=== PATIENT | male | born 1965 | race Caucasian/White ===

== ENCOUNTER 2021-09-21 10:33 | Inpatient (IN) | payer MEDICAID ==
[2021-09-21 15:00] VITALS: BP 144/88
[2021-09-21] MEDS ORDERED: HEPARIN SOD (PORCINE) 5000UNITS/ML 1ML VIAL/SYRINGE SC SCH (15:00)
[2021-09-21] MEDS ORDERED: LANTINJ4 SC (15:33)
[2021-09-21] MEDS ORDERED: TOPR50TA PO (15:33)
[2021-09-21] MEDS ORDERED: ASPI81CH33 PO (15:33)
[2021-09-21] MEDS ORDERED: CETI-24 PO (15:33)
[2021-09-21] MEDS ORDERED: TRUL10IN SC (15:33)
[2021-09-21] MEDS ORDERED: ATOR80TA59 PO (15:33)
[2021-09-21] MEDS ORDERED: METF-839 PO (15:33)
[2021-09-21] MEDS ORDERED: LOSA25TA13 PO (15:33)
[2021-09-21] MEDS ORDERED: FLON1SPR NARES (15:33)
[2021-09-21] MEDS ORDERED: TRIA2LOT TOP (15:33)
[2021-09-21] MEDS ORDERED: AMLO1TAB25 PO (15:33)
[2021-09-21] MEDS ORDERED: METF-838 PO (15:44)
[2021-09-21] MEDS ORDERED: HOME MED LIST COMPLETE! XX SCH (15:45)
[2021-09-21] MEDS: REMEDY PHYTOPLEX Z-GUARD PASTE 113GM TUBE (FROM STOREROOM PRODUCT) TOP SCH ×2 (16:00→21:00)
[2021-09-21] MEDS: ACETAMINOPHEN TAB 650MG DOSE (2X325MG) PO PRN (17:03)
[2021-09-21 20:00] VITALS: BP 131/79
[2021-09-21] MEDS: DOCUSATE SODIUM 100MG CAPSULE PO SCH ×2 (21:00→21:54)
[2021-09-21] MEDS: SENNA 8.6 MG TAB (SENOKOT) PO SCH (21:54)
[2021-09-21] MEDS: LEVEMIR (INSULIN DETEMIR) 1 UNITS/0.01ML SC SCH (21:55)
[2021-09-21] MEDS: FLUTICASONE PROP 0.05% NASAL SPRAY 16 GM (FLONASE) NARES SCH (21:55)
[2021-09-22 06:00] VITALS: BP 125/81
[2021-09-22 07:14] LABS: BASO # 0.1 10^3/uL (0.0-0.2); EOS # 0.3 10^3/uL (0.0-0.5); HEMATOCRIT 46.1 % (42.0-52.0); HEMOGLOBIN 15.5 g/dl (13.5-17.5); LYMPH # 1.4 10^3/uL (1.5-5.0); LYMPH % 17.6 % (24.0-44.0); MEAN CORPUSCULAR HEMOGLOBIN 31.6 pg (27.0-33.0); MEAN CORPUSCULAR HGB CONC 33.6 g/dl (32.0-36.5); MEAN CORPUSCULAR VOLUME 94.1 fl (80.0-96.0); MONO # 0.7 10^3/uL (0.0-0.8); MONO % 8.2 % (2.0-8.0); NEUTROPHILS # 5.5 10^3/uL (1.5-8.5); NEUTROPHILS % 68.2 % (36.0-66.0); PLATELET COUNT, AUTOMATED 345 10^3/uL (150-450)
[2021-09-22 07:27] LABS: ALT/SGPT 68 U/L (12-78); BILIRUBIN,TOTAL 0.8 MG/DL (0.2-1.0); BLOOD UREA NITROGEN 16 MG/DL (7-18); CALCIUM LEVEL 8.8 MG/DL (8.5-10.1); CARBON DIOXIDE LEVEL 29 MEQ/L (21-32); CHLORIDE LEVEL 108 MEQ/L (98-107); CREATININE FOR GFR 1.26 MG/DL (0.70-1.30); GLOMERULAR FILTRATION RATE > 60.0 (>56); GLUCOSE, FASTING 195 MG/DL (70-100); POTASSIUM SERUM 4.3 MEQ/L (3.5-5.1); SODIUM LEVEL 145 MEQ/L (136-145)
[2021-09-22] MEDS: FLUTICASONE PROP 0.05% NASAL SPRAY 16 GM (FLONASE) NARES SCH ×2 (09:00→21:41)
[2021-09-22] MEDS: REMEDY PHYTOPLEX Z-GUARD PASTE 113GM TUBE (FROM STOREROOM PRODUCT) TOP SCH ×3 (09:00→21:43)
[2021-09-22] MEDS: LEVEMIR (INSULIN DETEMIR) 1 UNITS/0.01ML SC SCH ×2 (09:13→21:40)
[2021-09-22] MEDS: PANTOPRAZOLE 40MG TAB (PROTONIX) PO SCH (09:14)
[2021-09-22] MEDS: ASPIRIN 81MG ENTERIC TABLET PO SCH (09:14)
[2021-09-22] MEDS: DOCUSATE SODIUM 100MG CAPSULE PO SCH ×2 (09:14→21:00)
[2021-09-22] MEDS: LOSARTAN 25 MG TAB PO SCH (09:14)
[2021-09-22] MEDS: METOPROLOL SUCC (TopROL XL) 50MG **XL** TAB PO SCH (09:14)
[2021-09-22] MEDS: ATORVASTATIN 20 MG TAB PO SCH (09:15)
[2021-09-22 12:00] VITALS: BP 133/80
[2021-09-22] MEDS: MAGIC MOUTHWASH SUSPENSION BTL SSP SCH ×2 (12:00→18:00)
[2021-09-22] MEDS ORDERED: GLUCAGON INJ 1MG VIAL SC PRN (14:00)
[2021-09-22] MEDS ORDERED: DEXTROSE 50% 50 ML SYRINGE IV PRN (14:00)
[2021-09-22] MEDS ORDERED: GLUCOSE 4GM CHEW TABLET PO PRN (14:00)
[2021-09-22] MEDS: HumaLOG INSULIN (NovoLOG) PER UNIT SC SCH ×2 (17:58→21:00)
[2021-09-22 20:00] VITALS: BP 117/66
[2021-09-22] MEDS: SENNA 8.6 MG TAB (SENOKOT) PO SCH (21:40)
[2021-09-22] MEDS: VANICREAM MOISTURIZING SKIN CREAM 113GM TUBE TOP SCH (21:41)
[2021-09-23 04:00] VITALS: BP 129/84
[2021-09-23 08:35] LABS: BASO # 0.1 10^3/uL (0.0-0.2); BASO % 1.1 % (0.0-1.0); EOS # 0.2 10^3/uL (0.0-0.5); EOS % 3.2 % (0.0-3.0); HEMATOCRIT 46.9 % (42.0-52.0); HEMOGLOBIN 15.7 g/dl (13.5-17.5); LYMPH # 1.7 10^3/uL (1.5-5.0); LYMPH % 24.1 % (24.0-44.0); MEAN CORPUSCULAR HEMOGLOBIN 31.5 pg (27.0-33.0); MEAN CORPUSCULAR HGB CONC 33.5 g/dl (32.0-36.5); MONO # 0.6 10^3/uL (0.0-0.8); MONO % 8.3 % (2.0-8.0); NEUTROPHILS # 4.3 10^3/uL (1.5-8.5); NEUTROPHILS % 62.3 % (36.0-66.0); PLATELET COUNT, AUTOMATED 337 10^3/uL (150-450); RED BLOOD COUNT 4.99 10^6/uL (4.30-6.10)
[2021-09-23] MEDS: REMEDY PHYTOPLEX Z-GUARD PASTE 113GM TUBE (FROM STOREROOM PRODUCT) TOP SCH ×3 (09:00→20:24)
[2021-09-23 09:03] LABS: BLOOD UREA NITROGEN 15 MG/DL (7-18); CALCIUM LEVEL 8.8 MG/DL (8.5-10.1); CARBON DIOXIDE LEVEL 29 MEQ/L (21-32); CHLORIDE LEVEL 109 MEQ/L (98-107); CREATININE FOR GFR 1.12 MG/DL (0.70-1.30); GLOMERULAR FILTRATION RATE > 60.0 (>56); GLUCOSE, FASTING 158 MG/DL (70-100); POTASSIUM SERUM 4.9 MEQ/L (3.5-5.1); SODIUM LEVEL 145 MEQ/L (136-145)
[2021-09-23] MEDS: ATORVASTATIN 20 MG TAB PO SCH (09:22)
[2021-09-23] MEDS: FLUoxetine 10 MG CAP PO SCH (09:22)
[2021-09-23] MEDS: METOPROLOL SUCC (TopROL XL) 50MG **XL** TAB PO SCH (09:23)
[2021-09-23] MEDS: LOSARTAN 25 MG TAB PO SCH (09:23)
[2021-09-23] MEDS: PANTOPRAZOLE 40MG TAB (PROTONIX) PO SCH (09:23)
[2021-09-23] MEDS: ASPIRIN 81MG ENTERIC TABLET PO SCH (09:23)
[2021-09-23] MEDS: DOCUSATE SODIUM 100MG CAPSULE PO SCH ×2 (09:23→20:23)
[2021-09-23] MEDS: LEVEMIR (INSULIN DETEMIR) 1 UNITS/0.01ML SC SCH (09:24)
[2021-09-23] MEDS: HumaLOG INSULIN (NovoLOG) PER UNIT SC SCH ×4 (09:25→20:21)
[2021-09-23] MEDS: MAGIC MOUTHWASH SUSPENSION BTL SSP SCH ×3 (09:26→17:30)
[2021-09-23] MEDS: FLUTICASONE PROP 0.05% NASAL SPRAY 16 GM (FLONASE) NARES SCH ×2 (09:27→20:23)
[2021-09-23] MEDS: VANICREAM MOISTURIZING SKIN CREAM 113GM TUBE TOP SCH ×2 (12:42→20:24)
[2021-09-23 14:00] VITALS: BP 130/70
[2021-09-23 20:00] VITALS: BP 140/78
[2021-09-23] MEDS: SENNA 8.6 MG TAB (SENOKOT) PO SCH (20:23)
[2021-09-24 04:00] VITALS: BP 143/82
[2021-09-24 05:00] VITALS: BP 143/82
[2021-09-24] MEDS: FLUoxetine 10 MG CAP PO SCH (08:59)
[2021-09-24] MEDS: DOCUSATE SODIUM 100MG CAPSULE PO SCH ×2 (08:59→20:44)
[2021-09-24] MEDS: PANTOPRAZOLE 40MG TAB (PROTONIX) PO SCH (08:59)
[2021-09-24] MEDS: ATORVASTATIN 20 MG TAB PO SCH (08:59)
[2021-09-24] MEDS: METOPROLOL SUCC (TopROL XL) 50MG **XL** TAB PO SCH (08:59)
[2021-09-24] MEDS: LOSARTAN 25 MG TAB PO SCH (08:59)
[2021-09-24] MEDS: ASPIRIN 81MG ENTERIC TABLET PO SCH (08:59)
[2021-09-24] MEDS: MAGIC MOUTHWASH SUSPENSION BTL SSP SCH ×3 (09:00→17:30)
[2021-09-24] MEDS: LEVEMIR (INSULIN DETEMIR) 1 UNITS/0.01ML SC SCH (09:00)
[2021-09-24] MEDS: VANICREAM MOISTURIZING SKIN CREAM 113GM TUBE TOP SCH ×2 (09:01→20:44)
[2021-09-24] MEDS: HumaLOG INSULIN (NovoLOG) PER UNIT SC SCH ×4 (09:01→19:31)
[2021-09-24] MEDS: FLUTICASONE PROP 0.05% NASAL SPRAY 16 GM (FLONASE) NARES SCH ×2 (09:01→20:44)
[2021-09-24] MEDS: REMEDY PHYTOPLEX Z-GUARD PASTE 113GM TUBE (FROM STOREROOM PRODUCT) TOP SCH ×3 (09:02→20:45)
[2021-09-24 14:00] VITALS: BP 131/78
[2021-09-24] MEDS: metFORMIN XR 500MG TAB *GLUCOPHAGE XR PO SCH (17:30)
[2021-09-24 20:00] VITALS: BP 140/83
[2021-09-24] MEDS: SENNA 8.6 MG TAB (SENOKOT) PO SCH (20:44)
[2021-09-25 06:00] VITALS: BP 134/82
[2021-09-25] MEDS: DOCUSATE SODIUM 100MG CAPSULE PO SCH ×2 (07:40→20:31)
[2021-09-25] MEDS: HumaLOG INSULIN (NovoLOG) PER UNIT SC SCH ×4 (07:40→20:33)
[2021-09-25] MEDS: FLUoxetine 10 MG CAP PO SCH (07:40)
[2021-09-25] MEDS: ASPIRIN 81MG ENTERIC TABLET PO SCH (07:40)
[2021-09-25] MEDS: PANTOPRAZOLE 40MG TAB (PROTONIX) PO SCH (07:40)
[2021-09-25] MEDS: ATORVASTATIN 20 MG TAB PO SCH (07:40)
[2021-09-25] MEDS: LEVEMIR (INSULIN DETEMIR) 1 UNITS/0.01ML SC SCH (07:40)
[2021-09-25] MEDS: METOPROLOL SUCC (TopROL XL) 50MG **XL** TAB PO SCH (07:40)
[2021-09-25] MEDS: MAGIC MOUTHWASH SUSPENSION BTL SSP SCH ×3 (07:41→17:04)
[2021-09-25] MEDS: FLUTICASONE PROP 0.05% NASAL SPRAY 16 GM (FLONASE) NARES SCH ×2 (07:41→20:31)
[2021-09-25] MEDS: VANICREAM MOISTURIZING SKIN CREAM 113GM TUBE TOP SCH ×2 (07:41→20:33)
[2021-09-25] MEDS: LOSARTAN 25 MG TAB PO SCH (07:41)
[2021-09-25] MEDS: REMEDY PHYTOPLEX Z-GUARD PASTE 113GM TUBE (FROM STOREROOM PRODUCT) TOP SCH ×3 (07:42→20:32)
[2021-09-25] MEDS: ACETAMINOPHEN TAB 650MG DOSE (2X325MG) PO PRN (11:56)
[2021-09-25 14:00] VITALS: BP 124/77
[2021-09-25] MEDS: ANALGESIC BALM CRM 3OZ TOP SCH ×2 (15:37→20:32)
[2021-09-25] MEDS: metFORMIN XR 500MG TAB *GLUCOPHAGE XR PO SCH (17:03)
[2021-09-25 19:37] VITALS: BP 150/86
[2021-09-25] MEDS: SENNA 8.6 MG TAB (SENOKOT) PO SCH (20:31)
[2021-09-26 06:00] VITALS: BP 147/91
[2021-09-26] MEDS: LEVEMIR (INSULIN DETEMIR) 1 UNITS/0.01ML SC SCH (08:34)
[2021-09-26] MEDS: MAGIC MOUTHWASH SUSPENSION BTL SSP SCH ×3 (08:34→18:27)
[2021-09-26] MEDS: ATORVASTATIN 20 MG TAB PO SCH (08:35)
[2021-09-26] MEDS: HumaLOG INSULIN (NovoLOG) PER UNIT SC SCH ×4 (08:35→20:49)
[2021-09-26] MEDS: FLUoxetine 10 MG CAP PO SCH (08:35)
[2021-09-26] MEDS: ASPIRIN 81MG ENTERIC TABLET PO SCH (08:35)
[2021-09-26] MEDS: PANTOPRAZOLE 40MG TAB (PROTONIX) PO SCH (08:35)
[2021-09-26] MEDS: METOPROLOL SUCC (TopROL XL) 50MG **XL** TAB PO SCH (08:37)
[2021-09-26] MEDS: LOSARTAN 25 MG TAB PO SCH (08:37)
[2021-09-26] MEDS: DOCUSATE SODIUM 100MG CAPSULE PO SCH ×2 (08:38→20:49)
[2021-09-26] MEDS: FLUTICASONE PROP 0.05% NASAL SPRAY 16 GM (FLONASE) NARES SCH ×2 (08:38→20:49)
[2021-09-26] MEDS: REMEDY PHYTOPLEX Z-GUARD PASTE 113GM TUBE (FROM STOREROOM PRODUCT) TOP SCH ×3 (08:39→20:52)
[2021-09-26] MEDS: ANALGESIC BALM CRM 3OZ TOP SCH ×3 (08:40→20:52)
[2021-09-26] MEDS: VANICREAM MOISTURIZING SKIN CREAM 113GM TUBE TOP SCH ×2 (08:40→20:53)
[2021-09-26 10:37] LABS: BASO # 0.1 10^3/uL (0.0-0.2); BASO % 0.8 % (0.0-1.0); EOS # 0.2 10^3/uL (0.0-0.5); EOS % 2.4 % (0.0-3.0); HEMATOCRIT 48.9 % (42.0-52.0); HEMOGLOBIN 16.2 g/dl (13.5-17.5); LYMPH # 1.4 10^3/uL (1.5-5.0); LYMPH % 16.5 % (24.0-44.0); MEAN CORPUSCULAR HEMOGLOBIN 31.6 pg (27.0-33.0); MEAN CORPUSCULAR HGB CONC 33.1 g/dl (32.0-36.5); MEAN CORPUSCULAR VOLUME 95.5 fl (80.0-96.0); MONO # 0.7 10^3/uL (0.0-0.8); NEUTROPHILS # 5.9 10^3/uL (1.5-8.5); NEUTROPHILS % 71.2 % (36.0-66.0); PLATELET COUNT, AUTOMATED 352 10^3/uL (150-450); RED BLOOD COUNT 5.12 10^6/uL (4.30-6.10); WHITE BLOOD COUNT 8.3 10^3/uL (4.0-10.0)
[2021-09-26 10:57] LABS: BLOOD UREA NITROGEN 12 MG/DL (7-18); CALCIUM LEVEL 9.5 MG/DL (8.5-10.1); CARBON DIOXIDE LEVEL 26 MEQ/L (21-32); CHLORIDE LEVEL 106 MEQ/L (98-107); CREATININE FOR GFR 1.21 MG/DL (0.70-1.30); GLOMERULAR FILTRATION RATE > 60.0 (>56); GLUCOSE, FASTING 186 MG/DL (70-100); POTASSIUM SERUM 4.8 MEQ/L (3.5-5.1); SODIUM LEVEL 140 MEQ/L (136-145)
[2021-09-26 14:00] VITALS: BP 125/69
[2021-09-26 15:20] VITALS: BP 139/96
[2021-09-26] MEDS: metFORMIN XR 500MG TAB *GLUCOPHAGE XR PO SCH (18:26)
[2021-09-26 20:38] VITALS: BP 122/90
[2021-09-26] MEDS: SENNA 8.6 MG TAB (SENOKOT) PO SCH (20:49)
[2021-09-26] MEDS: TRIAMCINOLONE ACET 0.1% CREAM 80 GM TOP SCH (20:52)
[2021-09-27 05:07] VITALS: BP 124/73
[2021-09-27] MEDS: ASPIRIN 81MG ENTERIC TABLET PO SCH (09:00)
[2021-09-27] MEDS: DOCUSATE SODIUM 100MG CAPSULE PO SCH (09:00)
[2021-09-27] MEDS: HumaLOG INSULIN (NovoLOG) PER UNIT SC SCH ×2 (10:10→12:15)
[2021-09-27] MEDS: ATORVASTATIN 20 MG TAB PO SCH (10:10)
[2021-09-27] MEDS: PANTOPRAZOLE 40MG TAB (PROTONIX) PO SCH (10:10)
[2021-09-27] MEDS: FLUoxetine 10 MG CAP PO SCH (10:10)
[2021-09-27] MEDS: MAGIC MOUTHWASH SUSPENSION BTL SSP SCH ×2 (10:11→12:00)
[2021-09-27] MEDS: TRIAMCINOLONE ACET 0.1% CREAM 80 GM TOP SCH (10:11)
[2021-09-27] MEDS: REMEDY PHYTOPLEX Z-GUARD PASTE 113GM TUBE (FROM STOREROOM PRODUCT) TOP SCH (10:12)
[2021-09-27] MEDS: VANICREAM MOISTURIZING SKIN CREAM 113GM TUBE TOP SCH (10:12)
[2021-09-27] MEDS: FLUTICASONE PROP 0.05% NASAL SPRAY 16 GM (FLONASE) NARES SCH (10:12)
[2021-09-27] MEDS: METOPROLOL SUCC (TopROL XL) 50MG **XL** TAB PO SCH (10:17)
[2021-09-27] MEDS: ANALGESIC BALM CRM 3OZ TOP SCH (10:17)
[2021-09-27 10:18] VITALS: BP 130/83
[2021-09-27] MEDS: LOSARTAN 25 MG TAB PO SCH (10:18)
[2021-09-27] MEDS ORDERED: ATOR80TA59 PO (11:20)
[2021-09-27] MEDS ORDERED: METO1TAB7 PO (11:20)
[2021-09-27] MEDS ORDERED: FLUO10CA18 PO (11:20)
[2021-09-27] MEDS ORDERED: LOSA25TA13 PO (11:20)
[2021-09-27] MEDS ORDERED: METF-838 PO (11:20)
[2021-09-27] MEDS ORDERED: ASPI81CH33 PO (11:20)
== END 2021-09-27 14:00 | disposition home or self-care (01) | DRG 58 ==
LOC: M PM&R 14:28 → UNDOADMIN 14:28
PROVIDERS: ADMIT Physical Medicine & Rehabilitation; ATTEND Physical Medicine & Rehabilitation
DX: I69.320 Aphasia following cerebral infarction (principal); I69.391 Dysphagia following cerebral infarction; R13.10 Dysphagia, unspecified; I10 Essential (primary) hypertension; E11.42 Type 2 diabetes mellitus with diabetic polyneuropathy; G47.33 Obstructive sleep apnea (adult) (pediatric); Z87.891 Personal history of nicotine dependence; Z74.09 Other reduced mobility; Z74.1 Need for assistance with personal care; Z79.4 Long term (current) use of insulin; Z79.82 Long term (current) use of aspirin; Z79.899 Other long term (current) drug therapy; Z91.013 Allergy to seafood; Z91.041 Radiographic dye allergy status; E78.5 Hyperlipidemia, unspecified; L30.9 Dermatitis, unspecified